=== PATIENT | female | born 1990 | race Hispanic/Latino ===

== ENCOUNTER 2023-02-01 22:13 | Inpatient (IN) | payer BC ==
[2023-02-01 22:34] VITALS: BMI 25.4
[2023-02-01] MEDS ORDERED: hydrALAZINE 20 MG/ML VIAL SLOW IVP PRN (23:08)
[2023-02-02] MEDS ORDERED: fentaNYL 50 mcg/mL 1 mL Vial SLOW IVP PRN (01:20)
[2023-02-02] MEDS ORDERED: Promethazine HCl 25 MG/ML VIAL IM PRN ×3 (01:20→21:56)
[2023-02-02] MEDS ORDERED: HYDROcodone/Acetaminophen 5/325 mg Tablet PO PRN ×2 (01:20)
[2023-02-02] MEDS ORDERED: Acetaminophen 500 MG TAB PO PRN (01:20)
[2023-02-02] MEDS ORDERED: Methylergonovine 0.2 MG/ML VIAL IM PRN (01:20)
[2023-02-02] MEDS ORDERED: Ondansetron PF 4 MG/2 ML Vial IVP PRN ×3 (01:20→21:56)
[2023-02-02] MEDS ORDERED: Butorphanol Tartrate 1 MG/ML VIAL SLOW IVP PRN (01:20)
[2023-02-02] MEDS ORDERED: Lidocaine 1% (PF) 30 ML VIAL SC PRN ×2 (01:20→09:50)
[2023-02-02] MEDS ORDERED: Misoprostol 200 MCG TAB PR PRN (01:20)
[2023-02-02] MEDS ORDERED: Ibuprofen 800 MG TAB PO PRN (01:20)
[2023-02-02] MEDS ORDERED: hydrALAZINE 20 MG/ML VIAL SLOW IVP PRN (01:20)
[2023-02-02] MEDS ORDERED: Penicillin G Potassium 5 MILL.UNITS in Sodium Chloride 0.9% 100 ML IVPB SCH (01:30)
[2023-02-02] MEDS ORDERED: NS w/ Oxytocin 30 units 500 ML IV SCH ×2 (01:30)
[2023-02-02] MEDS ORDERED: Lactated Ringer's 1,000 ML IV SCH (01:30)
[2023-02-02 01:54] LABS: Hemoglobin 11.4 g/dL (12.0-15.5); Mean Corpuscular HGB CONC 33.7 g/dL (32.0-36.0); Mean Corpuscular Hemoglobin 31.5 pg (27.0-33.0); Mean Corpuscular Volume 93.4 fl (81.6-98.3); Platelet Count 273 10x3/uL (150-450); RBC Distribution Width 14.9 % (11.5-14.5); Red Blood Cell (RBC) Count 3.62 10x6/uL (3.90-5.03); White Blood Cell (WBC) Count 13.6 10x3/uL (3.5-10.5)
[2023-02-02 02:27] LABS: Syphilis Antibody Nonreactive (Nonreactive); Syphilis Antibody Index 0.06 S/CO (<1.00 Non-Reactive)
[2023-02-02 02:55] LABS: HBSAg Index 0.62 S/CO (0-0.99); Hep B Surf Ag - L&D Non-Reactive S/CO (NonReactive)
[2023-02-02] MEDS: Lactated Ringer's 1,000 ML IV SCH ×2 (03:51→09:45)
[2023-02-02] MEDS: Penicillin G 2.5 MILL.units 2.5 MILL.UNITS in Premix Bag 1 BAG IVPB SCH ×4 (06:07→19:29)
[2023-02-02] MEDS: Misoprostol 100 MCG TAB VAG SCH ×2 (10:08→15:55)
[2023-02-02 14:03] LABS: Fetal Membranes Rupture No Membranes Rupture (No Rupture)
[2023-02-02] MEDS ORDERED: fentaNYL/Ropivacaine Epidural 100 ML ONE (15:30)
[2023-02-02] MEDS ORDERED: Moisturizing Cream (Eucerin) 113 GM JAR TOP PRN ×2 (16:30→21:56)
[2023-02-02] MEDS ORDERED: ePHEDrine Sulfate 50 MG/10 ML VIAL SLOW IVP PRN (16:30)
[2023-02-02] MEDS ORDERED: Acetaminophen 325 MG TAB PO PRN (16:30)
[2023-02-02] MEDS ORDERED: Naloxone HCl 0.4 mg/ml Vial IVP PRN ×4 (16:30→21:56)
[2023-02-02] MEDS ORDERED: diphenhydrAMINE 50 MG/ML VIAL IVP PRN ×2 (16:30→21:56)
[2023-02-02] MEDS ORDERED: Lactated Ringer's 500 ML IV PRN (16:30)
[2023-02-02] MEDS ORDERED: Communication Order-Pharmacy FS SCH ×2 (16:30→22:00)
[2023-02-02] MEDS ORDERED: fentaNYL 2 mcg/Ropivacaine 0.2% Epidural 100 ML CADD EPIDURAL SCH (16:30)
[2023-02-02] MEDS ORDERED: CEFAZOLIN 2 GM VIAL ONE (20:44)
[2023-02-02] MEDS ORDERED: Azithromycin 500 MG VIAL ONE (20:45)
[2023-02-02] MEDS ORDERED: Dexamethasone 4 mg/ml Vial ONE (20:55)
[2023-02-02] MEDS ORDERED: Ondansetron PF 4 MG/2 ML Vial ONE (20:55)
[2023-02-02] MEDS ORDERED: Oxytocin 10 UNITS/ML VIAL ONE ×2 (20:56→21:25)
[2023-02-02] MEDS ORDERED: fentaNYL 50 mcg/mL 1 mL Vial ONE (20:56)
[2023-02-02 21:32] LABS: pH (Cord, venous) 7.354 (7.250-7.350)
[2023-02-02] MEDS ORDERED: Simethicone Chewable 80 MG TAB PO PRN (21:55)
[2023-02-02] MEDS ORDERED: Naloxone HCl 0.4 mg/ml Vial IV PRN (21:56)
[2023-02-02] MEDS ORDERED: HYDROmorphone 2 MG/ML VIAL SLOW IVP PRN (21:56)
[2023-02-02] MEDS ORDERED: Fentanyl 100 MCG/2 ML VIAL SLOW IVP PRN (21:56)
[2023-02-02] MEDS ORDERED: Ondansetron HCl/PF 4 MG/2 ML Vial IVP PRN (21:56)
[2023-02-02] MEDS ORDERED: Meperidine HCl/PF 25 MG/ML VIAL SLOW IVP PRN (21:56)
[2023-02-02] MEDS ORDERED: Promethazine HCl 25 MG SUPP PR PRN (21:56)
[2023-02-02] MEDS ORDERED: Ketorolac Tromethamine 30 MG/ML VIAL IVP SCH (22:00)
[2023-02-03] MEDS: Ketorolac Tromethamine 30 MG/ML VIAL IVP PRN ×3 (00:58→21:10)
[2023-02-03] MEDS: Lactated Ringer's 1,000 ML IV SCH ×5 (02:00→21:20)
[2023-02-03] MEDS ORDERED: Morphine 2 MG/ML VIAL SLOW IVP PRN (02:50)
[2023-02-03] MEDS ORDERED: fentaNYL 50 mcg/mL 1 mL Vial SLOW IVP PRN (02:52)
[2023-02-03 04:02] LABS: Hemoglobin 8.1 g/dL (12.0-15.5); Mean Corpuscular HGB CONC 33.3 g/dL (32.0-36.0); Mean Corpuscular Hemoglobin 31.4 pg (27.0-33.0); Mean Corpuscular Volume 94.2 fl (81.6-98.3); Mean Platelet Volume 11.3 fl (7.4-10.4); Platelet Count 216 10x3/uL (150-450); Red Blood Cell (RBC) Count 2.58 10x6/uL (3.90-5.03); White Blood Cell (WBC) Count 18.5 10x3/uL (3.5-10.5)
[2023-02-03] MEDS: Penicillin G 2.5 MILL.units 2.5 MILL.UNITS in Premix Bag 1 BAG IVPB SCH (07:57)
[2023-02-03] MEDS: Misoprostol 100 MCG TAB VAG SCH (07:57)
[2023-02-03] MEDS: Ferrous Sulfate 325 MG TAB PO SCH ×2 (08:28→21:10)
[2023-02-03] MEDS: Docusate 100 MG CAP PO SCH ×2 (08:28→21:10)
[2023-02-03] MEDS: Prenatal Vitamin 1 TAB PO SCH (08:28)
[2023-02-03] MEDS: HYDROcodone/Acetaminophen 5/325 mg Tablet PO PRN (10:09)
[2023-02-04] MEDS: HYDROcodone/Acetaminophen 5/325 mg Tablet PO PRN ×3 (04:08→17:53)
[2023-02-04] MEDS: Prenatal Vitamin 1 TAB PO SCH (07:46)
[2023-02-04] MEDS: Ferrous Sulfate 325 MG TAB PO SCH ×2 (07:47→21:03)
[2023-02-04] MEDS: Docusate 100 MG CAP PO SCH ×2 (07:47→21:03)
[2023-02-04] MEDS: Lactated Ringer's 1,000 ML IV SCH ×3 (07:48→20:54)
[2023-02-05] MEDS: HYDROcodone/Acetaminophen 5/325 mg Tablet PO PRN ×2 (03:59→11:30)
[2023-02-05] MEDS: Prenatal Vitamin 1 TAB PO SCH (11:27)
[2023-02-05] MEDS: Docusate 100 MG CAP PO SCH (11:28)
[2023-02-05] MEDS: Ferrous Sulfate 325 MG TAB PO SCH (11:28)
[2023-02-05 13:15] VITALS: BP 122/66; TEMP 97.7
== END 2023-02-05 11:40 | disposition home or self-care (01) | DRG 788 ==
LOC: CSHLD/OP 22:13 → CSHLD 02-02 01:00 → CSHPP 02-03
PROVIDERS: ADMIT Obstetrics & Gynecology; ATTEND Obstetrics & Gynecology
PROC: 10D00Z1 Extraction of Products of Conception, Low, Open Approach (ICD-10-PCS; principal; 2023-02-02)
PROC: 10907ZC Drainage of Amniotic Fluid, Therapeutic from Products of Conception, Via Natural or Artificial Opening (ICD-10-PCS; 2023-02-02)
PROC: 4A133R1 Monitoring of Arterial Saturation, Peripheral, Percutaneous Approach (ICD-10-PCS; 2023-02-02)
PROC: 3E033VJ Introduction of Other Hormone into Peripheral Vein, Percutaneous Approach (ICD-10-PCS; 2023-02-02)
PROC: 3E0P7VZ Introduction of Hormone into Female Reproductive, Via Natural or Artificial Opening (ICD-10-PCS; 2023-02-02)
DX: O41.03X0 Oligohydramnios, third trimester, not applicable or unspecified (principal); Z3A.39 39 weeks gestation of pregnancy; Z37.0 Single live birth; O32.8XX0 Maternal care for other malpresentation of fetus, not applicable or unspecified; O77.0 Labor and delivery complicated by meconium in amniotic fluid; O76 Abnormality in fetal heart rate and rhythm complicating labor and delivery; Z79.899 Other long term (current) drug therapy
CPT/HCPCS: 36415; 51702; 76819; 82805; 84112; 85027; 86780; 86850; 86900; 86901; 87340; 99285; J1100; J1885; J2405; J2540; J2590; J3010; J3490; J7120